=== PATIENT | male | born 1985 | race Hispanic/Latino ===

== ENCOUNTER 2016-05-25 11:23 | Emergency (ER) | payer OTHER ==
[~2016-05-25] VITALS: Ht 175.3 cm; Wt 97.7 kg
[~2016-05-25 11:23] MED LIST: NPR500T PO
[2016-05-25 11:31] VITALS: BP 138/87; RESP 20; O2SAT 99
[2016-05-25 14:02] VITALS: BP 125/81; PULSE 58; RESP 20; O2SAT 98
--- NOTE | 2016-05-25 14:28 | ED.REPORT ---
HPI-Ear Pain/Problem/FB Date of Service May 25, 2016 ED Provider: Marcus Guy MD A healthy 30 year old male presents to the ER accompanied by his and child with a day and a half of left ear pain. He reports that he noticed blood on a Q- tip that he used to clean his ear yesterday. Recently he has been ill with symptoms cough and sore throat. No other medical complaints are voiced at this time. Nursing Notes Stated Complaint: POSSIBLE EAR INFECTION Chief Complaint: ENT & Mouth Nursing Notes Reviewed: Yes Allergies: Coded Allergies: Penicillins (Verified Allergy, Unknown, 11/07/15) Scheduled Clindamycin (Clindamycin) 300 Mg Capsule 300 MG PO QID Scheduled PRN Naproxen (Naproxen) 500 Mg Tab 500 MG PO BID PRN PRN For Pain General Time Seen by MD: 14:27 Chief Complaint Ear problem left Hx Obtained From: Patient Arrived By: Walk-in Onset Occurred: 2 days ago Symptom Duration: Since onset Location: : Inner ear Quality: Painful Severity: Current: Moderate Severity: Maximum: Moderate Associated with: Reports: Cough, Sore throat Pertinent Negative: Pt denies other symptoms Past Medical History Past Medical History Notes: no PCP Past Medical History carpal tunnel syndrome 4 years ago Smoking History Current Every Day Smoker Social History Alcohol Use: "Social" Ambulatory Status Independent Review of Systems Constitutional: Denies: Chills, Fever Ears / Nose / Throat: Reports: Earache left, Sore throat, Denies: Earache right, Hearing loss left, Hearing loss right, Mouth pain Complete sys rev & neg: except as marked. Additional Review of Systems Respiratory: Reports: Non-productive cough GI: Denies: Nausea, Vomiting Physical Exam Initial Vital Signs Vital Signs (First) Date Time Temp Pulse Resp B/P Pulse Ox O2 Delivery O2 Flow Rate FiO2 05/25/16 11:31 36.4 59 20 138/87 99 Room Air Initial VS: Reviewed Head / Eyes: Atraumatic, Normocephalic Neck: Supple, Non-tender, Full range of motion Respiratory: Breath sounds normal, Clear to auscultation, No respiratory distress Cardiovascular: Regular rate & rhythm, Heart sounds normal, Intact distal pulses Abdomen / GI: Soft, Non-tender, No guarding, No rebound, No distention Extremities: Vascular intact, Neuro intact, No swelling, No tenderness Skin: Warm, Dry, No cyanosis Neurologic: Alert, Oriented, Nonfocal General/Constitutional: Awake, Alert, Well developed, Well nourished ENT: Airway patent, Mucous membranes moist, Pharynx NL Left Ear / Mastoid: Positive: Tympanic membrane bulging, Tympanic membrane red Re-Eval/Medical Decision Med Decision/Clinical Course A healthy 30 year old male presents to the ER accompanied by his and child with a day and a half of left ear pain. Patient afebrile stable vital signs and examination as above. Of note patient has significant bulging and erythema of the left tympanic membrane without perforation or evidence of otitis externa. No evidence of mastoiditis or abscess. No evidence of malignant otitis externa. Patient overall healthy without any underlying immunocompromise. Given penicillin allergy patient describes seven-day course of clindamycin. Advised follow-up with primary care physician. Follow-up and return precautions reviewed in detail and patient discharged in good condition. Source of Hx: Old records Re-Evaluation/Progress : Time of Eval: 15:22 Re-Evaluation/Progress Note: Discussed physical examination findings and plan to discharge. Patient is amenable to the plan. Return precautions given. All other questions addressed. Counseled Regarding: Diagnosis, Need for follow-up, When/why to return to ED Discharge & Departure Primary Impression: Otitis media Otitis media type: suppurative Laterality: left Chronicity: acute Recurrence: not specified Spontaneous tympanic membrane rupture: without spontaneous rupture Qualified Code: H66.002 - Acute suppurative otitis media without spontaneous rupture of ear drum, left ear Additional Impression: Left ear pain Disposition: Home Discharge Condition All VS Reviewed: Yes Condition: Stable Patient Instructions: Otitis Media (ED) Additional Instructions: Thank you for seeking care at emergency room. It is difficult for us to make definitive diagnoses in the ED but we believe that you are experiencing an ear infection. Our primary goal today in the ED was to evaluate you for any life-threatening conditions. Your evaluation was reassuring. You will be discharged with a prescription for amoxicillin. Please take as directed. It is important that you take the entire course of antibiotics, even if you are feeling better. You should follow-up with your primary doctor this week. You should return to the ED immediately if you develop worsening or concerning signs or symptoms. Thank you for letting us partake in your care today. Referrals: NOPCP (PCP) Scribe Attestation Portions of this note were transcribed by Myla Mora. I, Dr. Guy, personally performed the history, physical exam and medical decision-making; I reviewed and confirmed the accuracy of the information in the transcribed note. Signed by: Rhea Arcos, 05/25/2016 and 15:26 Marcus Guy MD May 25, 2016 14:28 MYLA MORA May 25, 2016 15:24
[2016-05-25] MEDS ORDERED: CLIN-78 PO (15:22)
== END 2016-05-25 15:46 | disposition home or self-care (01) ==
LOC: SED 11:23
DX: H66.002 Acute suppurative otitis media without spontaneous rupture of ear drum, left ear (principal); F17.200 Nicotine dependence, unspecified, uncomplicated; Z88.0 Allergy status to penicillin